=== PATIENT | female | born 1965 | race Caucasian/White ===

== ENCOUNTER 2023-03-10 11:23 | Inpatient (IN) | payer OTHER ==
[~2023-03-10] VITALS: Ht 167.6 cm; Wt 93.2 kg
[~2023-03-10 11:23] MED LIST: ACETAMINOPHEN325 M2 PO; ALBUTEROL0.09 MG/Ac INH; ASPIRIN ADULT L81 M1 PO; ATIVAN1 MG PO; FUROSEMIDE40 MG PO; GABAPENTIN100 M1 PO; HYOSCYAMINE0.125 M2 SL; KLOR-CON M2020 ME1 PO; LEVOFLOXACIN750 M2 PO; LISINOPRIL20 MG PO; LOPERAMIDE HCL2 MG PO; LORAZEPAM0.5 M1 PO; MILK OF MA400 MG/5 M PO; MORPHINE S100 MG/5 M PO; ONDANSETRON HYDR8 MG PO; PREDNISONE10 MG PO; SYMB160 INH; VENT7GM INH; VITAMIN D350 MC2 PO
[2023-03-10 12:00] VITALS: BP 127/93
[2023-03-10 16:00] VITALS: BP 136/53
[2023-03-11 08:00] VITALS: BP 122/88
[2023-03-11 12:00] VITALS: BP 98/60
[2023-03-11 16:00] VITALS: BP 104/62
[2023-03-12 08:00] VITALS: BP 91/50
[2023-03-12 12:00] VITALS: BP 68/48
== END 2023-03-12 13:10 | DRG 180 ==
LOC: 4E 11:23
PROVIDERS: ADMIT Internal Medicine; ATTEND Internal Medicine
DX: C34.92 Malignant neoplasm of unspecified part of left bronchus or lung (principal); E43 Unspecified severe protein-calorie malnutrition; G93.41 Metabolic encephalopathy; N39.0 Urinary tract infection, site not specified; C78.89 Secondary malignant neoplasm of other digestive organs; C34.91 Malignant neoplasm of unspecified part of right bronchus or lung; E86.0 Dehydration; R09.2 Respiratory arrest; Z66 Do not resuscitate; Z51.5 Encounter for palliative care; Z68.32 Body mass index [BMI] 32.0-32.9, adult